=== PATIENT | female | born 1995 | race Caucasian/White ===

== ENCOUNTER → 2020-07-29 08:36 | Outpatient (CLI) | payer OTHER, SELFPAY ==
[2020-07-29 09:46] LABS: Appearance Urine UA CLEAR; Bilirubin Urine UA NEGATIVE (NEGATIVE); Color Urine UA YELLOW; Glucose Urine UA NEGATIVE (Negative); Ketones Urine UA NEGATIVE (NEGATIVE); Leukocyte Esterase Urine UA TRACE (NEGATIVE); Nitrite Urine UA NEGATIVE (Negative); Occult Blood Urine UA NEGATIVE (Negative); Protein Urine UA NEGATIVE (Negative); Urobilinogen Urine UA 0.2 E.U./dL (0.2); pH Urine UA 7.5 (4.5-8.0)
[2020-07-29 09:47] LABS: Bacteria Urine None Seen; RBC Urine None Seen (0-5/HPF)
[2020-07-29 09:52] LABS: Culture Indicated Urine Cult Not Indicated; Squamous Epithelial Cell Urine 5-10 /HPF (0-5/HPF); WBC Urine 0-1/HPF (0-5/HPF)
[2020-07-29 10:10] LABS: Add Manual Diff / Slide Review NO; Basophils Absolute Auto 0 /uL (0-100); Basophils Percent Auto 0.6 % (0-2); Eosinophils Absolute Auto 0 /uL (0-450); Eosinophils Percent Auto 0.3 % (2-4); Hematocrit 36.8 % (36-46); Hemoglobin 12.1 g/dL (12.0-16.0); Lymphocytes Absolute Auto 2300 /uL (1100-4500); Lymphocytes Percent Auto 33.7 % (25-40); Mean Corpuscular HGB Conc 32.8 % (30-36); Mean Corpuscular Hemoglobin 28.7 PG (26-34); Mean Corpuscular Volume 87.4 fL (80-100); Monocytes Absolute Auto 400 /uL (0-900); Neutrophils Absolute Auto 4100 /uL (1500-7000); Neutrophils Percent Auto 59.4 % (50-75); Platelet Count 317 X10^3/uL (150-400); Red Blood Cell Count 4.21 X10^6/uL (4.0-5.2); White Blood Cell Count 6.9 X10^3/uL (4.5-11.0)
[2020-07-29 13:38] LABS: Urine N gonorrhoeae NOT DETECTED
[2020-07-29 13:39] LABS: Urine Chlamydia NOT DETECTED
[2020-07-29 18:18] LABS: Hepatitis B Surface Antigen NEGATIVE s/c (NEGATIVE); Rubella Antibody IgG 12.7 IU/mL (>15)
[2020-07-29 18:35] LABS: HIV 1 & 2 Ab/Ag 4th Gen Combo NEGATIVE (NEGATIVE); Hep C Virus Ab w/Reflex Quant NEGATIVE s/c (NEGATIVE)
[2020-07-30 02:36] LABS: Varicella IgG Antibody 1106 index (Immune >165)
[2020-07-30 08:23] LABS: RPR Screen Non Reactive (Non Reactive)
== END ==
PROVIDERS: Referring Provider Specialist; Visit Provider Specialist
DX: Z34.81 Encounter for supervision of other normal pregnancy, first trimester (principal); Z3A.08 8 weeks gestation of pregnancy
CPT/HCPCS: 36415; 80055; 81003; 81015; 86787; 86803; 86850; 86900; 86901; 87086; 87389; 87491; 87591

== ENCOUNTER → 2020-10-13 10:51 | Outpatient (CLI) | payer OTHER, SELFPAY ==
--- NOTE | 2020-10-13 10:53 | DI.US.S_ITS ---
PROCEDURE: US OB >= 14 WEEKS FETUS INDICATIONS: 20 week anatomy scan OUTSIDE/PRIOR DATING DATA: Last menstrual period (LMP): May 29, 2020. LMP-based estimated date of delivery (ANTHONY): March 05, 2021. First dating scan (date and location): July 29, 2019. Estimated date of delivery (ANTHONY) from first dating scan: March 08, 2021. TECHNIQUE: Real-time scanning was performed of the fetus, with image documentation and biometric measurements. Endovaginal scanning: For 4 COMPARISON: [facility], , OB <= 14 WEEKS FETUS, 08/26/2020, 8:47. [facility], , OB >= 14 WEEKS FETUS, 07/29/2020, 8:39. FINDINGS: General: A single living intrauterine gestation is present. Presentation: Vertex Placenta: Placental position is posterior, without previa. Amniotic fluid index: 10.6 cm, normal range is 5-24 cm. heart rate: 157 beats per minute. Maternal cervical canal: Closed and 3.9 cm long. Normal lower limit is 2.5 cm. biometrics: Biparietal diameter: 19 weeks 0 days Head circumference: 19 weeks 3 days Abdominal circumference: 19 weeks 2 days Femur length: 19 weeks 2 days Estimated gestational age from initial scan: 19 weeks 1 day. Composite gestational age from present scan: 19 weeks 2 days Estimated weight and percentile: 283; 53rd percentile Measurement variability for biometric dating: +/- 7 days from 14 weeks to 15 weeks 6 days gestation, +/- 10 days from 16 weeks to 21 weeks 6 days gestation, +/- 2 weeks from 22 weeks to 27 weeks 6 days gestation, +/- 3 weeks for 28 weeks gestation or later. weight reference: 4500 g or EFW >90/95% is considered macrosomia or large for gestational age. EFW <10% is small for gestational age. EFW 5% or less is considered intra-uterine growth restriction. Anatomic survey: Neuro: Ventricles are non-dilated at less than 10 mm. Cisterna magna is normal at 3-11 mm. Cerebellum is normal in size and morphology. Nuchal skin fold: Normal at less than 6 mm between 14-21 weeks gestational age. Face: Nose and lips, facial profile are normal. Spine: No evidence for spina bifida. Heart: 4-chambered heart is present, with normal ventricular outflow tracts. Diaphragm: Diaphragm is intact. Stomach: Left-sided stomach is present. Kidneys: No hydronephrosis. Normal is less than 5 mm in 2nd trimester, less than 7 mm in 3rd trimester. Cord: 3-vessel cord has orthotopic insertion. Bladder: Normal in size. Extremities: All 4 extremities identified. IMPRESSION: 1. Single living intrauterine with appropriate interval growth. 2. Normal anatomic survey. Dictated by: Mell Castillo MD, PhD on 10/13/2020 at 15:58 Approved by: Mell Castillo MD, PhD on 10/13/2020 at 16:01
== END ==
PROVIDERS: Referring Provider Specialist; Visit Provider Specialist
DX: Z34.82 Encounter for supervision of other normal pregnancy, second trimester (principal); Z3A.20 20 weeks gestation of pregnancy
CPT/HCPCS: 76811

== ENCOUNTER → 2020-11-20 08:09 | Outpatient (CLI) | payer OTHER, MEDICAID, SELFPAY ==
[2020-11-20 10:16] LABS: Hematocrit 35.3 % (36-46); Hemoglobin 11.9 g/dL (12.0-16.0)
[2020-11-20 10:21] LABS: GTT (PREG) 1 Hour PP 50gm Dose 154 mg/dL (76-139)
== END ==
PROVIDERS: Referring Provider Specialist; Visit Provider Specialist
DX: Z34.82 Encounter for supervision of other normal pregnancy, second trimester (principal); Z3A.26 26 weeks gestation of pregnancy
CPT/HCPCS: 36415; 82950; 85014; 85018

== ENCOUNTER → 2021-01-20 07:26 | Outpatient (CLI) | payer OTHER, MEDICAID, SELFPAY ==
[2021-01-20 09:16] LABS: Glucose Fasting Gestational 81 mg/dL (76-95)
[2021-01-20 09:19] LABS: Glucose 1 Hour Gest 168 mg/dL (76-180)
[2021-01-20 11:17] LABS: Glucose 2 Hour Gest 98 mg/dL (76-155)
[2021-01-20 11:18] LABS: Glucose Tol Interp,Gestational INTERPRETATION
[2021-01-20 12:43] LABS: Glucose 3 Hour Gest 113 mg/dL (76-140)
== END ==
PROVIDERS: Referring Provider Specialist; Visit Provider Specialist
DX: O99.810 Abnormal glucose complicating pregnancy (principal)
CPT/HCPCS: 36415; 82951; 82952

== ENCOUNTER → 2021-02-03 12:20 | Outpatient (CLI) | payer OTHER, MEDICAID, SELFPAY ==
[2021-02-04 13:06] LABS: Strep Grp B PCR NEG for Grp B Strep
== END ==
PROVIDERS: Visit Provider Specialist
DX: Z34.83 Encounter for supervision of other normal pregnancy, third trimester (principal); Z3A.35 35 weeks gestation of pregnancy
CPT/HCPCS: 87653

== ENCOUNTER 2021-03-02 06:59 | Inpatient (IN) | payer OTHER, MEDICAID, SELFPAY ==
--- NOTE | 2021-03-02 07:48 | PM.OBHP.1 ---
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) History of Present care: good care, initiated at week # (8), number of visits (11) and pounds weight gain (19) Dating criteria: LMP confirmed by 1st trimester US Obstetrical complications: none Medical complications: none Preadmission Labs Blood type: O (+) positive -: Antibody screen: negative, GBS status: negative, HBsAG: negative, HIV: negative and RPR/VDLR: negative -: Chlamydia screen: not detected and Gonorrhea screen: not detected -: Rubella: not immune and Varicella: immune 1 hr GTT: 154 3 hr GTT: 1 hr (168), 2 hr (98) and 3 hr (113) Fasting blood glucose: 154 Evaluation Evaluation Baseline heart rate: 150 Variability: Moderate (11-25) monitor accelerations: Present Monitor Decelerations: Absent Contraction Frequency (minutes): 0 Category of Tracing: Reactive Status: Category l Cervical dilation (cm): 3 Cervical effacement (%): 75 station: -2 [facility] Medical History (Updated 07/28/20 @ 10:45 by Ashley Mcfadden RN) Depression (~2018) Post depression (~11/2019) (spontaneous vaginal delivery) (~01/07/18) (spontaneous vaginal delivery) (~11/10/19) Surgical History (Updated 08/09/20 @ 12:58 by Grace Mattson) H/O wisdom tooth extraction (~2011) Family History (Updated 08/09/20 @ 12:59 by Grace Mattson) Mother H/O breast biopsy Family history of thyroid problem Father No problems noted. Grandmother Diabetes mellitus Alzheimer's dementia Mental health problem Grandfather Prostate cancer Grandmother No problems noted. Grandfather Lung abnormality Sister No problems noted. Family/Other Family history of thyroid problem Social History marital status: number of children: 2 household members: spouse, family, children and other (Lives with her Grandmother currently) lives independently: Yes pets and animals: No education level: college (BA in Comm. and Business ) occupational status: employed ([employer] service 5 hours /week) current occupational exposures/hazards: No tuan/sabianist: Jehovah'[employer] Witness special tuan needs: No Smoking Status: Never smoker second hand exposure: No alcohol intake: former (pre- : occasional ) substance use type: does not use Meds Home Medications and Allergies Home Medications Medication Instructions Recorded Confirmed Type prenat.vits,magdalena,mlh-[id number] 1 tab PO DAILY 07/28/20 03/02/21 History Allergies Allergy/AdvReac Type Severity Reaction Status Date / Time No Known Drug Allergies Allergy Verified 02/03/21 10:43 Review of Systems Review of Systems Narrative: Patient denies headaches, scotomata, epigastric pain. Good movement. No leakage of fluid. Exam Vital Signs (past 8 hours): Blood pressure 117/68, pulse of 102, temperature 97.6? Narrative Exam Narrative: HEENT exam within normal limits. Lungs are clear to auscultation percussion. Heart is regular rate and rhythm no S3-S4 or murmurs. Abdomen is gravid. Fetus is vertex. Extremities without edema and nontender. 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 Anticipate vaginal delivery
[2021-03-02 08:08] LABS: Add Manual Diff / Slide Review NO; Basophils Absolute Auto 100 /uL (0-100); Basophils Percent Auto 0.6 % (0-2); Eosinophils Absolute Auto 0 /uL (0-450); Eosinophils Percent Auto 0.2 % (2-4); Hematocrit 35.6 % (36-46); Hemoglobin 11.6 g/dL (12.0-16.0); Lymphocytes Absolute Auto 1700 /uL (1100-4500); Lymphocytes Percent Auto 11.2 % (25-40); Mean Corpuscular HGB Conc 32.6 % (30-36); Mean Corpuscular Hemoglobin 28.6 PG (26-34); Mean Corpuscular Volume 87.8 fL (80-100); Monocytes Absolute Auto 1000 /uL (0-900); Monocytes Percent Auto 6.5 % (3-14); Neutrophils Absolute Auto 12600 /uL (1500-7000); Neutrophils Percent Auto 81.5 % (50-75); Platelet Count 251 X10^3/uL (150-400); Red Blood Cell Count 4.06 X10^6/uL (4.0-5.2); Red Cell Distribution Width 13.4 % (11.6-14.8); White Blood Cell Count 15.4 X10^3/uL (4.5-11.0)
[2021-03-02] MEDS: LACTATED RINGERS 1,000 ML 100 ML IV ×3 (08:11→17:04)
[2021-03-02] MEDS: OXYTOCIN PREMIX 30 UNIT/500 ML PLAST..BAG IV (08:11)
[2021-03-02 08:14] VITALS: BP 117/75
[2021-03-02 09:04] LABS: COVID19 - ADMIT (NP swab/PCR) Negative (Negative)
--- NOTE | 2021-03-02 13:18 | PM.OBPNLAB ---
Date/Time Date Patient Seen: 03/02/21 Time Patient Seen: 13:18 Pain Control Pain control: tolerating well Pelvic Exam Dilation (cm): 4 Effacement (%): 85 station: 0 Amniotic membrane status: Intact Contractions Contractions on admission: none Monitor mode: External Pitocin rate (mU/min): 14 Contraction frequency (min): 3 Contraction duration (min): 1 Contraction intensity: Moderate Status status: Category l Heart Rate Baseline: 150 Monitor Accelerations: Present Monitor Decelerations: Absent Monitor Variability: Moderate Assessment and Plan Assessment: induction ongoing Plan: other (Artificial rupture of membranes with clear amniotic fluid.) Comments: Epidural as necessary
[2021-03-02] MEDS: FENT 2MCG/ML BUPIV 0.125% EPI 200 MCG/100 ML PLAST..BAG 6 MCG EPIDURAL (15:14)
--- NOTE | 2021-03-02 15:26 | PM.AN.REGBLK ---
Regional Block Pre-procedure Procedure: Continuous Lumbar Epidural for L&D Attending OB provider: Catarina Watts PMH/ROS narrative: term induction, no complications. ASA Class: II Labs: Hct 35.6 % (36-46) L 03/02/21 07:50 Plt Count 251 X10^3/uL (150-400) 03/02/21 07:50 Medications: Current Medications Generic Name Dose Route Start Last Admin Trade Name Freq PRN Reason Stop Dose Admin Calcium Carbonate 1,000 mg 03/02/21 07:18 Calcium Carbonate 500 Mg Tab PO Q2HR PRN Dyspepsia Carboprost Tromethamine 250 mcg 03/02/21 07:18 Carboprost 250 Mcg/Ml Ampul IM Q90M PRN Bleeding Diphenhydramine HCl 25 mg 03/02/21 14:54 Diphenhydramine 50 Mg/Ml Vial IV Q10M PRN Pruritis Fentanyl 100 mcg 03/02/21 07:18 Fentanyl 100 Mcg/2 Ml Inj IV Q1H PRN Pain, Severe (7-10) Lactated Ringer's 1,000 mls @ 100 mls/hr 03/02/21 07:30 03/02/21 15:01 Lactated Ringers IV 100 mls/hr CONT JAYLEN Administration Oxytocin/Lactated Ringer's 30 unit in 500 mls @ 3 mls/hr 03/02/21 07:30 03/02/21 08:11 Oxytocin Premix IV 2 milliunit/min TITRATE JAYLEN 2 mls/hr Administration Protocol 3 MILLIUNIT/MIN Tranexamic Acid 1,000 mg/ 100 mls @ 200 mls/hr 03/02/21 07:18 Sodium Chloride IV NOW PRN Bleeding Oxytocin/Lactated Ringer's 30 unit in 500 mls @ 200 mls/hr 03/02/21 07:18 Oxytocin Premix IV CONT PRN Bleeding Protocol FENT 2MCG/ML BUPIV 0.125% EPI 200 mcg in 100 mls @ 6 mls/hr 03/02/21 15:00 Fentanyl/Bupiv/Ns 2mcg/Ml - 0.125% EPIDURAL CONT JAYLEN Methylergonovine Maleate 0.2 mg 03/02/21 07:18 Methylergonovine 0.2 Mg/Ml Vial IM NOW PRN Bleeding Methylergonovine Maleate 0.2 mg 03/02/21 07:18 Methylergonovine 0.2 Mg Tablet PO Q6HR PRN Heavy Bleeding Misoprostol 1,000 mcg 03/02/21 07:18 Misoprostol 200 Mcg Tablet PA NOW PRN Bleeding Misoprostol 400 mcg 03/02/21 07:18 Misoprostol 200 Mcg Tablet SL NOW PRN Bleeding Misoprostol 800 mcg 03/02/21 07:18 Misoprostol 200 Mcg Tablet PA NOW PRN Bleeding Nalbuphine HCl 2.5 mg 03/02/21 14:54 Nalbuphine 20 Mg/Ml Ampul IV Q10M PRN Pruritis Naloxone HCl 0.2 mg 03/02/21 07:18 Naloxone 0.4 Mg/Ml Vial IV Q2MIN PRN Opiate Reversal Ondansetron HCl 4 mg 03/02/21 07:18 Ondansetron 4 Mg/2 Ml Inj IV Q4HR PRN Nausea And Vomiting Oxytocin 10 unit 03/02/21 07:18 Oxytocin 10 Unit/Ml Vial IM NOW PRN Bleeding Allergies: Allergies Allergy/AdvReac Type Severity Reaction Status Date / Time No Known Drug Allergies Allergy Verified 02/03/21 10:43 Procedure Insertion date: 03/02/21 Insertion time: 15:08 Prep/Local: betadine x3 Interspace: L3-4 Needle: 18 gauge netZentrytead (CSE: 27g Pencan through Hustead, clear CSF, 0.5mL 0.25% bupiv) Loss of resistance with: saline MOY at (cm): 4 Catheter placed at SKIN (cm): 9 Catheter in SPACE (cm): 5 Insertion: No CSF, No Blood, No Paresthesia with insertion, No Paresthesia with injection and No Test dose reaction Initial Medications TEST DOSE time: 15:09 TEST DOSE: 1.5% lidocaine with epinephrine 1:200k (mL): 3 BOLUS DOSE time: 15:19 BOLUS DOSE (mL): 3 BOLUS DOSE med: other (infusate) Infusion INFUSION: 0.125% bupivacaine and with fentanyl 2 mcg/mL Initial rate (mL/hr): 6 Subsequent interventions: 1800: 5mL 0.25% bupiv for LLQ window, rate to 8mL/h Post-procedure Anesthesia time START: 14:57 Anesthesia time END: 19:35 Post-procedure Anesthesia Assessment: Yes CV function: HR/BP stable, Yes Resp function: RR/sat/airway adequate, Yes Post-op hydration adequate, Yes Mental status appropriate and No Anesthesia complications
--- NOTE | 2021-03-02 20:32 | PM.OBPRVD ---
Labor & Delivery Delivery date: 03/02/21 Intrapartal Events: None Cervical ripening method: none Induction method: per pitocin protocol Delivery augmentation: rupture of membranes Delivery monitor: external FHT and external uterine Route of delivery: Episiotomy description: None L&D Laceration Description: Perineal - 1st Degree and Vaginal - 1st Degree Delivery repair: vicryl and chromic Estimated blood loss (mL): 250 Anesthesia Type: Epidural Complications: None Narrative: Patient complete and pushed with 1 contraction. At 7:35 p.m., a live female delivered spontaneously in the ANAYA presentation over an intact perineum. No nuchal cord. The remainder of the body delivered without difficulty and was placed on mom's abdomen. After the cord stopped pulsing, the cord was double clamped and cut. Cord bloods were obtained. The placenta delivered intact with a three-vessel cord at 7:43 p.m.. The fundus was massaged to firm. Pitocin was given in the IV fluids after cord clamping. A first-degree vaginal/perineal laceration was repaired with 2 0 Vicryl and 2 0 chromic in the usual fashion. Hemostasis was achieved. Apgars 7 at 1 minute and 9 at 5 minutes. Estimated blood loss 250 cc. Epidural analgesia. . Mom and stable to recovery. [place] Baby 1: Infant gender: Female Presentation: vertex Position: Left Occiput Anterior Placenta delivery description: Spontaneous Cord Vessel Description: 3 Vessels score (1 min): 7 score (5 min): 9 weight: 8 lb 1 oz Plan for aftercare: Routine care
[2021-03-02] MEDS: ACETAMINOPHEN 325 MG TABLET 650 MG PO (22:08)
[2021-03-02] MEDS: IBUPROFEN 600 MG TABLET PO (22:09)
[2021-03-02] MEDS: DERMOPLAST SPRAY 20% 60 ML 1 SPRAY TOP (22:09)
[2021-03-03] MEDS: ACETAMINOPHEN 325 MG TABLET 650 MG PO (04:05)
[2021-03-03] MEDS: IBUPROFEN 600 MG TABLET PO ×3 (04:06→17:00)
[2021-03-03 07:35] LABS: Hematocrit 31.5 % (36-46); Hemoglobin 10.3 g/dL (12.0-16.0)
[2021-03-03] MEDS: PRENATAL VIT,CALC/IRON/FOLIC 1 TABLET 1 TAB PO (09:21)
[2021-03-03] MEDS: DOCUSATE 100 MG CAPSULE PO (09:21)
[2021-03-03] MEDS: MEASLES,MUMPS,RUBELLA VACC/PF 0.5 ML VIAL SUBCUT (11:51)
[2021-03-03] MEDS: LANOLIN OINT 7 GM 1 APPLIC TOP (13:40)
--- NOTE | 2021-03-03 14:59 | P.DS_ITS ---
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 She received Pitocin followed by an epidural catheter for pain control. She had a spontaneous vaginal delivery with repair of a first-degree vaginal and a first- degree perineal tear. Patient was doing well and requested discharge home. No headaches, scotomata, epigastric pain. Bleeding is mild. Pain is under control. Patient is urinating and ambulating well. Breast-feeding is going well. Peripartum Data Infant Delivery Method: Natural Vaginal Laceration Description: Perineal - 1st Degree and Vaginal - 1st Degree Procedures: Pitocin induction, epidural catheter, vaginal delivery, repair of vaginal tear complications: none 1: Gender: Female Disposition of : home Discharge Diagnosis (1) Vaginal delivery: Status: Acute Status at Discharge Cognitive/behavioral status at discharge: oriented Functional status at discharge: independent ambulation Overall status at discharge: patient is progressing back to baseline Time Spent with Patient Time attestation: Total time spent providing and/or coordinating discharge services: Time spent: Less than 30 minutes Objective Labs Result Diagrams: 03/03/21 06:48 Labs: Laboratory Results - last 24 hr 03/03/21 06:48 Hgb 10.3 L Hct 31.5 L Exam Vital Signs (past 8 hours): Blood pressure 91/55, pulse 61, temperature 97.5? Narrative Exam Narrative: Abdomen is soft, nontender. Uterus is firm, at U, nontender. Repair is intact. Mild lochia. Extremities without edema and nontender. Patient is O positive. She received Tdap in 3rd trimester. She will receive rubella vaccine prior to discharge. Discharge Plan Discharge Plan Patient Disposition: Home Discharge orders & Medications Prescriptions: New ibuprofen 600 mg Tablet 600 mg PO Q6HR PRN (Reason: Pain, Mild (1-3)) Qty: 30 RF: 0 hydrocodone-acetaminophen 5-325 mg tablet 1 tab PO Q4-6H PRN (Reason: pain) Qty: 20 RF: 0 Continued prenat.vits,magdalena,[id number]-jiabn Tablet 1 tab PO DAILY RF: 0 Follow up/Referrals: Esme Ramsay MD [Physician] - 1 Month (Follow-up with Dr. Ramsay on March 29 at 9:45am) Doctor Gauthier MD [Primary Care Provider] - Diet/Activity/Treatments Diet: Regular Activity: Nothing in vagina for 6 weeks Skin/Wound/Dressing Care Report to your healthcare provider any signs of infection, such as:: chills, fever and increased pain Visit Report/Discharge Packet Stand Alone Forms: Discharge: Care Discharge Data Primary Care Provider: Doctor Disha
[2021-03-03 16:14] VITALS: BP 91/55; PULSE 61; RESP 12; TEMP 36.4
== END 2021-03-03 17:37 | disposition home or self-care (01) | DRG 560 ==
PROVIDERS: Obstetrics & Gynecology; Admitting Provider Specialist; Referring Provider Specialist; Visit Provider Specialist
DX: O70.0 First degree perineal laceration during delivery (principal); Z3A.39 39 weeks gestation of pregnancy; Z37.0 Single live birth; Z20.822 Contact with and (suspected) exposure to COVID-19
CPT/HCPCS: 01967; 36415; 59050; 59400; 59409; 85014; 85018; 85025; 86850; 86900; 86901; 87635; C9803; G0379; J2590

== ENCOUNTER → 2021-03-04 10:16 | Outpatient (CLI) | payer OTHER, MEDICAID, SELFPAY ==
[2021-03-04 11:02] LABS: COVID19 -Nasal RAPID Negative (Negative)
== END ==
PROVIDERS: Visit Provider Nurse Practitioner
DX: Z20.822 Contact with and (suspected) exposure to COVID-19 (principal); J31.2 Chronic pharyngitis
CPT/HCPCS: 87070; 87635; 87880

== ENCOUNTER → 2021-07-08 10:54 | Outpatient (CLI) | payer OTHER, MEDICAID, SELFPAY ==
[2021-07-08 12:36] LABS: COVID19 -Nasal RAPID POSITIVE (Negative)
== END ==
PROVIDERS: Visit Provider Nurse Practitioner Family
DX: Z20.822 Contact with and (suspected) exposure to COVID-19 (principal)
CPT/HCPCS: 87635

== ENCOUNTER → 2021-12-05 12:19 | Outpatient (CLI) | payer OTHER, MEDICAID, SELFPAY ==
[2021-12-05 13:00] LABS: COVID19 -Nasal RAPID Negative (Negative)
== END ==
PROVIDERS: Visit Provider Physician Assistant
DX: Z20.822 Contact with and (suspected) exposure to COVID-19 (principal); J31.2 Chronic pharyngitis
CPT/HCPCS: 87070; 87635

== ENCOUNTER → 2021-12-06 14:13 | Outpatient (CLI) | payer OTHER, MEDICAID, SELFPAY ==
--- NOTE | 2021-12-06 14:15 | DI.RAD.S_ITS ---
PROCEDURE: XR CHEST 2V INDICATIONS: cough, fever TECHNIQUE: 2 views of the chest were acquired. COMPARISON: None. FINDINGS: Surgical changes and devices: None. Lungs and pleura: Lungs are clear. No pleural effusions or pneumothorax. Mediastinum: Mediastinal contours are normal. Heart size is normal. Bones and chest wall: No suspicious bony abnormalities. Soft tissues appear unremarkable. IMPRESSION: Normal two view chest x-ray Approved by: Dawood Guzman M.D. on 12/06/2021 at 14:03
== END ==
PROVIDERS: PCP Family Medicine; Referring Provider Physician Assistant; Visit Provider Physician Assistant
DX: J06.9 Acute upper respiratory infection, unspecified (principal)
CPT/HCPCS: 71046

== ENCOUNTER → 2022-07-20 15:49 | Outpatient (CLI) | payer OTHER, MEDICAID, SELFPAY ==
--- NOTE | 2022-07-20 | DI.US.S_ITS ---
PROCEDURE: US THYROID INDICATIONS: NONTOXIC SINGLE THYROID NODULE TECHNIQUE: Real-time scanning was performed of the thyroid gland, with image documentation. COMPARISON: None. FINDINGS: Right: Thyroid lobe measures 5.7 x 1.7 x 1.6 cm, and is homogeneous in echotexture. Left: Thyroid lobe measures 6.1 x 2.5 x 1.8 cm, and is homogenous in echotexture. Isthmus: 4.8 mm thick. Nodule number: 1 Location: Isthmus Size: 0.7 x 0.7 x 0.3 cm. Composition: Predominantly solid Echogenicity: Hypoechoic Shape: wider than tall. Margins: Smooth Echogenic foci: None Total points: 4 ACR TI-RADS category: 4 Nodule number: 2 Location: Left mid Size: 1.1 x 0.8 x 0.6 cm. Composition: Predominantly solid Echogenicity: Hypoechoic Shape: wider than tall. Margins: Lobulated Echogenic foci: Non Total points: 4 ACR TI-RADS category: 4 Nodule number: 3 Location: Left inferior medial Size: 2.1 x 1.7 x 1.2 cm. Composition: Predominantly solid Echogenicity: Hypoechoic Shape: wider than tall. Margins: Lobulated Echogenic foci: None Total points: 4 ACR TI-RADS category: 4 Nodule number: 4 Location: Left inferior lateral Size: 1.9 x 1.2 x 1.4 cm. Composition: Predominantly solid Echogenicity: Hypoechoic Shape: wider than tall. Margins: Smooth Echogenic foci: None Total points: 4 ACR TI-RADS category: 4 IMPRESSION: Lesions 3 and 4 considered category 4 and secondary to size, fine-needle aspiration is recommended. Lesion 2 is considered category 4 and secondary to size interval follow-up at 1, 2, 3 and 5 years is recommended. Lesion 1 is considered category 4 and secondary to size there is no recommendation for follow-up. ACR TI-RADS definitions and recommendations: TI-RADS 1 (benign): 0 points. FNA not needed. TI-RADS 2 (not suspicious): 2 points. FNA not needed. TI-RADS 3 (mildly suspicious): 3 points. * FNA if 2.5 cm or larger, follow up if 1.5 cm or larger (at 1, 3, and 5 years). TI-RADS 4 (moderately suspicious): 4-6 points. * FNA if 1.5 cm or larger, follow up if 1 cm or larger (at 1, 2, 3, and 5 years). TI-RADS 5 (highly suspicious): 7 points or more. * FNA if 1 cm or larger, follow up if 0.5 cm or larger (every year for 5 years). Dictated by: Gretchen Bernal M.D. on 07/20/2022 at 19:11 Approved by: Gretchen Bernal M.D. on 07/20/2022 at 19:15
== END ==
PROVIDERS: PCP Family Medicine; Referring Provider Otolaryngology; Visit Provider Otolaryngology
DX: E04.2 Nontoxic multinodular goiter (principal)
CPT/HCPCS: 76536

== ENCOUNTER → 2022-09-13 14:42 | Outpatient (CLI) | payer OTHER, MEDICAID, SELFPAY ==
--- NOTE | 2022-09-13 | PATH_ITS ---
Note [facility] Accession Number: [id number] TESTS RESULT FLAG UNITS REF RANGE LAB Clinician Provided Cytology Information No. of containers..01 Other (Miscellaneous) No. of containers..02 Previously Prepared Cytology Slide Source: LEFT THYROID NODULE #3 DIAGNOSIS: LEFT THYROID NODULE #3 INCONCLUSIVE. BETHESDA CATEGORY III. FOLLICULAR LESION OF UNDETERMINED SIGNIFICANCE. SPECIMEN CONSISTS OF FOLLICULAR CELLS, SOME WITH MICROFOLLICULAR ARCHITECTURE, AND COLLOID. THE DIFFERENTIAL DIAGNOSIS INCLUDES CELLULAR ADENOMATOID NODULE AND FOLLICULAR NEOPLASM. MOLECULAR STUDIES PENDING; RESULTS WILL BE REPORTED AN ADDENDUM. Pathologist ICD10: 01 R89.6 Signed out by: Marysol Walton MD, Pathologist NPI- [id number] Performed by: Garrett Stein, Hospital Medicine Director ([facility]) Gross description: 30 CC, COLORLESS, HAZY RECEIVED IN CYTOLYT WHITE CAP CONTAINER RECEIVED 1 RNA VIAL RECEIVED 6 ALCOHOL FIXED SLIDES IN 2 GREEN CAP COFFINS RECEIVED 6 FIXED SLIDES IN 2 SLIDE HOLDERS /RZA 09/14/2022 0909 Local FLAG LEGEND: L-Low Normal,H-High Normal,LL-Alert Low,HH-Alert High <-Panic Low,>-Panic High,A-Abnormal,AA-Critical Abnormal Performed at: 01 =Z [facility] [address], [place] [address] Leeroy Gutiérrez MD, Performed at: 01 [facility] Cytology [address], [place], [place] [id number] MD Leeroy Gutiérrez MD Phone: [phone]
--- NOTE | 2022-09-13 | DI.US.S_ITS ---
PROCEDURE: US FINE NEEDLE ASPIRATION INDICATIONS: MULTIPLE THYROID NODULES TECHNIQUE: The indications, alternatives, benefits, risks, and complications of the procedure were explained to the patient. Written informed consent was obtained and placed in the chart. The area of interest was examined sonographically and a site was chosen for ultrasound guided percutaneous sampling. The skin was prepared and draped in the usual fashion, and anesthetized with 1% lidocaine infiltrated from the skin down to the lesion. Multiple passes were then performed, with contents emptied into an appropriate pathology specimen container. A bandage was applied to the area of access at completion of the study. COMPARISON: None. FINDINGS: Location(s) of lesion(s) sampled: Left thyroid nodule #3. [place]: 25 gauge hypodermic needles. Number of passes: 6 Medications: 1% lidocaine for local anaesthesia. Complications: None. IMPRESSION: Successful ultrasound-guided left thyroid lobe nodule fine needle aspiration, with cytology results pending. Dictated by: Tray Randolph M.D. on 09/19/2022 at 17:40 Approved by: Tray Randolph M.D. on 09/19/2022 at 17:40
--- NOTE | 2022-09-13 | PATH_ITS ---
Note [facility] Accession Number: [id number] TESTS RESULT FLAG UNITS REF RANGE LAB Clinician Provided Cytology Information No. of containers..01 Other (Miscellaneous) No. of containers..02 Previously Prepared Cytology Slide Source: LEFT THYROID NODULE #4 DIAGNOSIS: LEFT THYROID NODULE #4 NEGATIVE FOR MALIGNANT CELLS. BETHESDA CATEGORY II. SPECIMEN CONSISTS OF BENIGN FOLLICULAR CELLS, HEMOSIDERIN-LADEN MACROPHAGES, COLLOID, AND BLOOD. 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 Pathologist ICD10: 01 E04.1 Signed out by: Marysol Walton MD, Pathologist NPI- [id number] Performed by: Una Josue, Histology Manager ([facility]) Gross description: 30 CC, PINK, HAZY RECIEVED IN CYTOLYT WHITE CAP CONTAINER RECEIVED 1 RNA VIAL RECEIVED 6 ALCOHOL FIXED SLIDES IN 2 GREEN CAP COFFINS RECEIVED 6 FIXED SLIDES IN 2 SLIDE HOLDERS /RZA 09/14/2022 [facility] Local FLAG LEGEND: L-Low Normal,H-High Normal,LL-Alert Low,HH-Alert High <-Panic Low,>-Panic High,A-Abnormal,AA-Critical Abnormal Performed at: 01 =Z [facility] [address], [place] [address] Leeroy Gutiérrez MD, Performed at: 01 [facility] Cytology [address] [place] [address] [address], [place], [place] [id number] MD Leeroy Gutiérrez MD Phone: [phone]
== END ==
PROVIDERS: PCP Family Medicine; Referring Provider Otolaryngology; Visit Provider Otolaryngology
DX: E04.2 Nontoxic multinodular goiter (principal)
CPT/HCPCS: 10005

== ENCOUNTER → 2023-09-28 15:45 | Outpatient (CLI) | payer OTHER, SELFPAY ==
--- NOTE | 2023-09-28 15:48 | DI.US.S_ITS ---
Noah DOOLEYURE: US THYROID INDICATIONS: thyroid nodule TECHNIQUE: Real-time scanning was performed of the thyroid gland, with image documentation. COMPARISON: [facility], [place], US THYROID, 07/20/2022, 16:12. FINDINGS: Thyroid: Right lobe measures 5.2 x 1.4 x 2.0 cm. Left lobe measures 5.2 x 2.1 x 2.6 cm. Isthmus is 0.5 cm thick. Echotexture is homogeneous. Nodule number: 1 Location: Isthmus Size: 0.9 x 0.5 x 0.3 cm. Composition: Solid Echogenicity: Hypoechoic Shape: wider than tall. Margins: Smooth Echogenic foci: None Total points: 4 ACR TI-RADS category: 4. No sonographic follow-up recommended given small size. Nodule number: 2 Location: Left superior Size: 1.2 x 0.9 x 0.9 cm. Composition: Predominantly cystic Echogenicity: Anechoic Shape: wider than tall. Margins: Smooth Echogenic foci: None Total points: 0 ACR TI-RADS category: 1, benign. Nodule number: 3 Location: Left mid Size: 2.0 x 2.0 x 1.3 cm (previously 2.1 x 1.4 x 1.5 cm). Composition: Solid Echogenicity: Isoechoic Shape: wider than tall. Margins: Smooth Echogenic foci: None Total points: 3 ACR TI-RADS category: 3. Nodule number: 4 Location: Left inferior Size: 2.1 x 1.4 x 1.5 cm. (Previously measured 1.9 x 1.2 x 1.4 cm) Composition: Solid Echogenicity: Isoechoic Shape: wider than tall. Margins: Smooth Echogenic foci: None Total points: 3 ACR TI-RADS category: 3. IMPRESSION: 1. T3 lesions in the left thyroid lobe which measure greater than 1.5 cm. Sonographic follow-up recommended at 1, 3, and 5 years. The current study is the 1st of 3 recommended follow-up studies. ACR TI-RADS definitions and recommendations: TI-RADS 1 (benign): 0 points. FNA not needed. TI-RADS 2 (not suspicious): 2 points. FNA not needed. TI-RADS 3 (mildly suspicious): 3 points. * FNA if 2.5 cm or larger, follow up if 1.5 cm or larger (at 1, 3, and 5 years). TI-RADS 4 (moderately suspicious): 4-6 points. * FNA if 1.5 cm or larger, follow up if 1 cm or larger (at 1, 2, 3, and 5 years). TI-RADS 5 (highly suspicious): 7 points or more. * FNA if 1 cm or larger, follow up if 0.5 cm or larger (every year for 5 years). Dictated by: Sweta Carter M.D. on 09/30/2023 at 11:45 Approved by: Sweta Carter M.D. on 09/30/2023 at 11:50
== END ==
LOC: US 15:47
PROVIDERS: PCP Family Medicine; Referring Provider Otolaryngology; Visit Provider Otolaryngology
DX: E04.2 Nontoxic multinodular goiter (principal)
CPT/HCPCS: 76536

== ENCOUNTER → 2023-10-12 07:59 | Outpatient (CLI) | payer OTHER, SELFPAY | PROVIDERS: PCP Family Medicine; Visit Provider Physician Assistant | DX: J02.9 Acute pharyngitis, unspecified (principal) | CPT/HCPCS: 87070 ==

== ENCOUNTER → 2023-10-13 15:06 | Outpatient (CLI) | payer OTHER, SELFPAY ==
--- NOTE | 2023-10-13 15:10 | DI.RAD.S_ITS ---
PROCEDURE: XR CHEST 2V INDICATIONS: Cough x 1 month TECHNIQUE: 2 views of the chest were acquired. COMPARISON: [facility], , XR CHEST 2V, 12/06/2021, 14:05. FINDINGS: Surgical changes and devices: None. Lungs and pleura: Lungs are clear. No pleural effusions or pneumothorax. Mediastinum: Mediastinal contours are normal. Heart size is normal. Bones and chest wall: No suspicious bony abnormalities. Soft tissues appear unremarkable. IMPRESSION: Normal two view chest x-ray Approved by: Dawood Guzman M.D. on 10/13/2023 at 14:57
== END ==
LOC: RAD 15:08
PROVIDERS: PCP Family Medicine; Referring Provider Physician Assistant; Visit Provider Physician Assistant
DX: R05.9 Cough, unspecified (principal)
CPT/HCPCS: 71046